=== PATIENT | male | born 1950 | race Hispanic/Latino ===

== ENCOUNTER → 2025-05-30 | Outpatient (CLI) | payer OTHER ==
--- NOTE | 2025-05-30 18:24 | HMCSR ---
APPROVED REPORT EXAM: Two-dimensional and M-mode echocardiogram with Doppler and color Doppler. INDICATION ICD: Chronic ischemic heart disease, unspecified I25.9 2D Dimensions RVDd3.2 cmLVEF(%)48.1 (>50%)LVED Vol(simp.)97.0 mL IVSd0.9 (0.7-1.1cm)FS(%)24 %LVES Vol(simp.)43.0 mL LVDd4.8 (3.8-5.6cm)LA (2D)4.0 (1.6-4.0cm)LVEF(%, simp.)55 % PWd0.9 (0.7-1.1cm)Ao Root(2D)3.5 (2.0-3.7cm)LA ESV INDEX (BP)29.98 mL/m2 LVDs3.6 (2.5-4.0cm)LVOT diam2.2 (1.8-2.4cm) IVC diam1.9 cm M-Mode Dimensions EPSS0.6 cm LA (MM)4.3 (1.6-4.0cm) Ao Root(MM)3.3 (2.0-3.7cm) Aortic Valve AoV Vmax1.3 m/Vandana Peak GR6.4 mmHgLVOT Vmax1.0 m/s AoV VTI0.3 mAo Mean GR3.5 mmHgLVOT VTI0.24 m THIEN (VMAX)3.06 cm2Al P1/2T269 msAVA (VTI) 3.2 cm2 Mitral Valve MV E Vmax76.2 cm/sDECEL Khjf455 ms MV A Anzs754.9 cm/sP 1/2 T45 ms E/A ratio0.8MVA (PHT)4.9 cm2 TDI E/E' Igvqre69.9E/E' Lateral9.5 Medial E' Peak V5.90 cm/sLateral E' Peak V8.00 cm/s Pulmonary Valve PV Vmax0.9 m/sPV VTI0.19 mPV Mean GR1.7 mmHg PV Peak GR3.1 mmHg Tricuspid Valve TR Vmax2.5 m/sRVSP24.6 mmHg TR Peak GR24.7 mmHg Left Ventricle The left ventricle is normal size. There is normal left ventricular wall thickness. LVEF is 50-55%. T he left ventricular diastolic function is normal. Right Ventricle The right ventricle is normal size. The right ventricular systolic function is normal. Atria The left atrium size is normal. The right atrium size is normal. Aortic Valve The aortic valve is normal in structure. Mild aortic regurgitation. There is no aortic valvular steno sis. Mitral Valve The mitral valve is normal in structure. Mitral regurgitation is mild. There is no mitral valve steno sis. Tricuspid Valve The tricuspid valve is normal in structure. There is mild tricuspid valve regurgitation noted. Pulmonic Valve The pulmonary valve is normal in structure. There is no pulmonic valvular regurgitation. Great Vessels The aortic root is normal in size. The IVC is normal in size and collapses >50% with inspiration. Pericardium There is no pericardial effusion. Conclusion The left ventricle is normal size. LVEF is 50-55%. The left ventricular diastolic function is normal. The right ventricle is normal size. The right ventricular systolic function is normal. The left atrium size is normal. The right atrium size is normal. Mild aortic regurgitation. Mitral regurgitation is mild. There is mild tricuspid valve regurgitation noted. There is no pericardial effusion.
== END | disposition home or self-care (01) ==
LOC: RAH 13:44
PROVIDERS: ATTEND Chiropractor
DX: I08.3 Combined rheumatic disorders of mitral, aortic and tricuspid valves (principal); I25.9 Chronic ischemic heart disease, unspecified
CPT/HCPCS: 93306